=== PATIENT | female | born 1990 | race African-American/Black ===

== ENCOUNTER 2017-07-27 11:39 | Emergency (ER) | payer MEDICAID ==
[~2017-07-27] VITALS: Ht 165.1 cm; Wt 73.0 kg
[~2017-07-27 11:39] MED LIST: ALBU2.5V13
[2017-07-27 14:47] LABS: BASOPHILS % 0.6 % (0.0-2.0); EOSINOPHILS % 0.4 % (0.0-5.0); HEMATOCRIT. 35.4 % (36.0-48.0); HEMOGLOBIN. 11.8 g/dL (12.0-16.0); LYMPHOCYTES % 25.7 % (20.0-50.0); MEAN CORPUSCULAR HEMOGLOBIN 31.4 pg (28.0-32.0); MEAN CORPUSCULAR VOLUME 93.8 fL (81.0-99.0); MEAN PLATELET VOLUME 6.7 fl (7.4-10.4); MONOCYTES % 9.3 % (2.0-8.0); PLATELET 260 x1000/uL (130-400); RED BLOOD CELL COUNT 3.77 mill/uL (4.2-5.4); RED CELL DISTRIBUTION WIDTH 13.3 % (11.6-14.6)
[2017-07-27 14:57] LABS: CHLORIDE 102 mEq/L (98-107)
[2017-07-27 15:16] LABS: B-HCG QUANTITATIVE 79577 mIU/mL (<3)
[2017-07-27 15:28] LABS: CLARITY URINE CLEAR (CLEAR); COLOR URINE YELLOW (YELLOW); KETONES URINE TRACE (NEGATIVE); LEUKOCYTE ESTERASE URINE NEGATIVE (NEGATIVE); NITRITE URINE NEGATIVE (NEGATIVE); OCCULT BLOOD URINE NEGATIVE (NEGATIVE); PROTEIN URINE NEGATIVE (NEGATIVE); SPECIFIC GRAVITY URINE 1.027 (1.005-1.030); UROBILINOGEN URINE 0.2 E.U./dL (0.2-1.0)
[2017-07-27 16:53] VITALS: BP 110/86
== END 2017-07-27 16:51 | disposition home or self-care (01) ==
LOC: ER 12:53
DX: O26.891 Other specified pregnancy related conditions, first trimester (principal); R10.31 Right lower quadrant pain; Z3A.01 Less than 8 weeks gestation of pregnancy
CPT/HCPCS: 36415; 76801; 80048; 81003; 81025; 84702; 85025; 86850; 86900; 99285

== ENCOUNTER 2021-02-24 15:47 | Emergency (ER) | payer MEDICAID ==
[~2021-02-24] VITALS: Ht 165.1 cm; Wt 68.0 kg
[2021-02-24] MEDS ORDERED: IBUPROFEN 600MG TABLET PO STA (18:35)
[2021-02-24] MEDS ORDERED: IBUP-2029 MT (20:14)
[2021-02-24 20:20] VITALS: BP 127/81
== END 2021-02-24 20:32 | disposition home or self-care (01) ==
LOC: ER 15:47
DX: B34.9 Viral infection, unspecified (principal)
CPT/HCPCS: 71045; 99283

== ENCOUNTER 2021-04-20 22:53 | Emergency (ER) | payer MEDICAID ==
[~2021-04-20] VITALS: Ht 165.1 cm; Wt 67.0 kg
[~2021-04-20 22:53] MED LIST changes: -ALBU2.5V13; +IBUP-2029 MT
[2021-04-21] MEDS ORDERED: SODIUM CHLORIDE 0.9% 1,000 ML IV ONE ×2 (00:30→02:00)
[2021-04-21] MEDS ORDERED: KETOROLAC 15MG/ML VIAL IV ONE (00:30)
[2021-04-21 01:01] LABS: BASOPHILS % 0.8 % (0.0-2.0); EOSINOPHILS % 0.7 % (0.0-5.0); HEMATOCRIT. 38.4 % (36.0-48.0); HEMOGLOBIN. 13.1 g/dL (12.0-16.0); LYMPHOCYTES % 33.8 % (20.0-50.0); MEAN CORPUSCULAR HEMOGLOBIN 34.9 pg (28.0-32.0); MEAN CORPUSCULAR VOLUME 102.1 fL (81.0-99.0); MEAN PLATELET VOLUME 6.9 fl (7.4-10.4); MONOCYTES % 8.3 % (2.0-8.0); NEUTROPHILS % 56.4 % (40.0-76.0); PLATELET 199 x1000/uL (130-400); RED BLOOD CELL COUNT 3.76 mill/uL (4.2-5.4); RED CELL DISTRIBUTION WIDTH 14.8 % (11.6-14.6)
[2021-04-21 01:25] LABS: CHLORIDE 100 mEq/L (98-107)
[2021-04-21] MEDS ORDERED: IOHEXOL-300 100 ML BOTTLE ONE (02:15)
[2021-04-21] MEDS ORDERED: FLUORESCEIN SODIUM 1MG/STRIP RIGHTEYE ONE (02:30)
[2021-04-21] MEDS ORDERED: T3 PO ×3 (04:28→04:30)
[2021-04-21] MEDS ORDERED: AMOX-424 MT (04:28)
[2021-04-21] MEDS ORDERED: POLY10DR RIGHTEYE (04:28)
[2021-04-21 05:00] VITALS: BP 122/71
== END 2021-04-21 05:08 | disposition home or self-care (01) ==
LOC: ER 22:53
DX: K04.7 Periapical abscess without sinus (principal); H10.9 Unspecified conjunctivitis; R07.89 Other chest pain; H92.01 Otalgia, right ear; R00.0 Tachycardia, unspecified; F10.10 Alcohol abuse, uncomplicated; Y90.9 Presence of alcohol in blood, level not specified; Z63.4 Disappearance and death of family member
CPT/HCPCS: 36415; 70491; 80053; 83605; 85025; 93005; 96361; 96374; 99285; J1885; J7030; Q9967